=== PATIENT | female | born 2000 | race Two or more races ===

== ENCOUNTER → 2021-01-27 | Outpatient (CLI) | payer OTHER ==
--- NOTE | 2021-01-27 16:25 | KCIC ---
EXAMINATION: CT abdomen and pelvis without IV contrast. INDICATION:20 years, Female, microscopic hematuria and right flank pain. TECHNIQUE: Axial CT images of the abdomen and pelvis were obtained. Coronal and sagittal reformatted performed. COMPARISON: None. Exposure: One or more of the following individualized dose reduction techniques were utilized for thi s examination: 1. Automated exposure control 2. Adjustment of the mA and/or kV according to patient size 3. Use of iterative reconstruction technique. FINDINGS: LOWER CHEST: Unremarkable. ABDOMEN/PELVIS: Within the limitation of noncontrast exam, Liver, gallbladder, biliary ducts, spleen, pancreas, and adrenals are unremarkable. No hydronephrosis or nephrolithiasis in either kidney. Unremarkable urinary bladder. No bowel dilatation or wall thickening. Normal appendix. Normal caliber abdominal aorta. No lymphaden opathy in the abdomen or pelvis by size criteria. No pneumoperitoneum. Small amount of pelvic free fl uid, likely physiologic. Follicular changes in the right ovary. Unremarkable uterus. MUSCULOSKELETAL: Schmorl's nodes at L3-4. No acute osseous process. IMPRESSION: No obstructive uropathy or urolithiasis. Electronically signed by: Rosamaria Mesa MD (01/27/2021 4:22 PM) K[facility]
== END ==
LOC: KCIC CT 14:28
PROVIDERS: ATTEND Family Medicine
DX: M51.46 Schmorl's nodes, lumbar region (principal); R31.9 Hematuria, unspecified; R10.9 Unspecified abdominal pain
CPT/HCPCS: 74176